=== PATIENT | male | born 1970 | race Caucasian/White ===

== ENCOUNTER 2019-12-23 21:05 | Emergency (ER) | payer BC ==
[~2019-12-23 21:05] MED LIST: Iopamidol-370 76% 500 ML 1 ML ONE
--- NOTE | 2019-12-23 21:40 | RAD ---
Exam: One view chest 2 views abdomen HISTORY: Umbilical hernia. Pain. FINDINGS: 1 view chest: Normal cardiac silhouette. Scar/atelectasis in the left lung base. No masses or consoli dation. No pneumothorax. No pleural effusion. No osseous abnormalities 2 views abdomen: Nonspecific bowel gas pattern. No evidence of bowel distention or dilatation. No pne umoperitoneum. No suspicious densities in the abdomen or pelvis. IMPRESSION: 1. No acute cardiopulmonary process. 2. Nonspecific bowel gas pattern.
[2019-12-23 21:44] LABS: #Basophils 0.1 thou/uL (0.0-0.2); #Eosinphils 0.5 thou/uL (0.0-0.7); #Lymphocytes 2.8 thou/uL (1.20-3.40); #Monocytes 0.7 thou/uL (0.11-0.59); #Neutrophils 4.2 thou/uL (1.40-6.50); %Basophils 0.9 % (0.0-1.0); %Eosinophils 6.1 % (0.0-10.0); %Lymphocytes 33.1 % (21.0-51.0); %Monocytes 8.7 % (0.0-10.0); %Neutrophils 51.1 % (42.0-75.0); Hemoglobin 18.5 g/dL (14.0-18.0); Mean Corpuscular HGB CONC 34.8 g/dL (32.0-36.0); Mean Corpuscular Hemoglobin 32.4 pg (27.0-31.0); Mean Corpuscular Volume 93.1 fL (78.0-98.0); Mean Platelet Volume 9.3 fL (7.4-10.4); Platelet Count 172 thou/uL (130-400); White Blood Cell (WBC) Count 8.3 thou/uL (4.8-10.8)
[2019-12-23] MEDS ORDERED: Morphine 4 MG/ML VIAL ONE ×2 (21:53→22:07)
[2019-12-23] MEDS ORDERED: Ketorolac Tromethamine 30 MG/ML VIAL ONE (21:54)
[2019-12-23 21:57] LABS: ALT (SGPT) 49 U/L (8-55); AST (SGOT) 24 U/L (5-34); Alkaline Phosphatase 36 U/L (40-110); Anion Gap 14 mmol/L (10-20); BUN (Urea Nitrogen) 14 mg/dL (8.9-20.6); Bilirubin, Total 0.4 mg/dL (0.2-1.2); Calc. Creatinine Clearance 0 mL/min (70-130); Calcium 9.6 mg/dL (7.8-10.44); Carbon Dioxide 23 mmol/L (22-29); Chloride 107 mmol/L (98-107); Estimated GFR-MDRD 53; Globulin 3.2 g/dL (2.4-3.5); Glucose 107 mg/dL (70-105); Lipase 117 U/L (8-78); Potassium 3.9 mmol/L (3.5-5.1); Protein, Total 7.2 g/dL (6.0-8.3); Sodium 140 mmol/L (136-145)
[2019-12-23] MEDS ORDERED: Fentanyl 100 MCG/2 ML VIAL ONE (22:23)
--- NOTE | 2019-12-23 23:49 | CT ---
EXAM: CT ABDOMEN AND PELVIS HISTORY: Chronic umbilical hernia. Abdominal pain. Past medical history of Crohn's disease and ulcera tive colitis. COMPARISON: None. Procedure: Multiple contiguous axial images were obtained and a CT of the abdomen and pelvis with IV contrast. C oronal reformats were performed. FINDINGS: Lower Chest: Linear densities in the lung bases may represent atelectasis or scar. Possibility of the left lower lobe infiltrate cannot be entirely excluded. Vessels: Normal caliber aorta. No periaortic fat stranding. Heart: Normal heart size. Abdomen: Portal vein:Patent Gallbladder: No calcified gallstones. Normal caliber wall. Liver: within normal limits. Pancreas: No enhancing masses. The pancreatic duct is slightly prominent measuring 0.3 cm. Spleen: within normal limits. Adrenals: within normal limits. Kidneys: Symmetric enhancement. No obstructive uropathy. Peritoneum: No ascites or free air, no fluid collection. Anterior abdominal wall: Anterior abdominal wall hernia containing segment of mesenteric fat. No evid ence of bowel herniation. Mild induration of the herniated fat. Bowel: Limited evaluation due to the lack of oral contrast administration. No evidence of bowel obstr uction. Ileocecal junction is unremarkable. Normal caliber appendix. Scattered fecal material in a nondistended, nondilated colon. Diverticulosis. No evidence of diverticulitis. Mesentery and Retroperitoneum: No enlarged mesenteric or retroperitoneal lymph nodes. Pelvis: Reproductive Organs: Reproductive organs are unremarkable. Pelvis: No mass, lymphadenopathy, free air or free fluid. Bladder: within normal limits. Bones: within normal limits. IMPRESSION: 1. Bibasilar atelectasis. Left lower lobe infiltrate cannot be entirely excluded. 2. Nonspecific upper normal pancreatic duct. No obvious pancreatic mass. 3. Diverticulosis, without evidence of diverticulitis. 4. Normal caliber appendix 5. Ventral abdominal wall hernia containing mesenteric fat. No bowel herniation.
== END 2019-12-24 00:27 | disposition home or self-care (01) ==
LOC: ERS 21:05
DX: K42.9 Umbilical hernia without obstruction or gangrene (principal)
CPT/HCPCS: 74022; 74177; 80053; 83690; 85025; 96361; 96374; 96375; J1885; J2270; J3010; Q9967

== ENCOUNTER → 2019-12-28 | Day surgery (SDC) | payer BC ==
[2019-12-27 16:14] VITALS: BMI 29.5
[~2019-12-28] MED LIST changes: +Acetaminophen 500 MG TAB ONE; +Bupivacaine 0.25% HCL 30 ML VIAL ONE; +EPHEDRINE 25 MG/5 ML SYRINGE ONE; +EPINEPHrine 1 MG/ML AMP ONE; +Fentanyl 100 MCG/2 ML VIAL ONE; -Iopamidol-370 76% 500 ML 1 ML ONE; +Ketorolac Tromethamine 30 MG/ML VIAL ONE; +Lidocaine 1% PF 5 ML VIAL ONE; +Meperidine HCl/PF 25 MG/ML VIAL ONE; +Ondansetron PF 4 MG/2 ML Vial ONE; +PROPOFOL 200 MG/20 ML VIAL ONE; +Rocuronium Bromide 10 MG/ML (10ML VIAL) ONE
--- NOTE | 2019-12-29 10:02 | OP ---
DATE OF PROCEDURE: 12/28/2019 PREOPERATIVE DIAGNOSIS: Painful ventral hernia. POSTOPERATIVE DIAGNOSIS: Painful ventral hernia. PROCEDURE PERFORMED: Ventral hernia repair with mesh using 4.3 cm Ventralex mesh patch. ANESTHESIA: General endotracheal. INDICATIONS: The patient is a 49-year-old white male. He presented to the emergency room for a painful incarcerated ventral hernia. It could not be reduced. CT scan demonstrated incarcerated fatty tissue within the hernia. He saw me in the office yesterday and secondary to the severity of his symptoms, I have scheduled him for his surgery for repair of his ventral hernia today. DESCRIPTION OF OPERATION: Informed consent was obtained. The patient was taken to the operating room, where general endotracheal anesthesia was obtained with the patient in supine position. The abdomen was prepped with ChloraPrep and draped in sterile fashion. Local anesthetic was infiltrated using 0.25% Marcaine with epinephrine. A curvilinear infraumbilical incision was created. Dissection was carried through skin and subcutaneous tissue down to the fascia. The umbilicus was dissected off the underlying fascia and dissection was carried up to the hernia sac. This was carefully dissected circumferentially. It was mobilized from all surrounding tissue. It was dissected at its base. The contents were entirely fatty. It would not reduce. I therefore divided all the fatty tissue and passed off the field. Meticulous hemostasis obtained with electrocautery. Preperitoneal digital dissection was carried circumferentially. Once the space was a 4.3 cm mesh patch was obtained and placed within the preperitoneal space. The tails were pulled secure against the fascia and sutured to the anterior aspect of the fascia superior and inferior to the hernia defect. The lateral aspects of the hernia were closed with interrupted sutures of 0 Prolene also. The umbilicus was then sutured back down to the fascia with 2 interrupted sutures of 3-0 Vicryl. The remainder of the wound was closed in layers with 3-0 and 4-0 Monocryl. Dermabond was placed externally. A compression dressing was then created using cotton balls and Tegaderm dressing. There were no complications. The patient tolerated the procedure well, was taken to the recovery room in stable condition. Job ID: [id number]
== END ==
LOC: SDC 09:37
PROVIDERS: ATTEND Specialist
PROC: 0WUF0JZ Supplement Abdominal Wall with Synthetic Substitute, Open Approach (ICD-10-PCS; principal; 2019-12-28)
DX: K43.9 Ventral hernia without obstruction or gangrene (principal); G61.0 Guillain-Barre syndrome
CPT/HCPCS: J0171; J0690; J1885; J2001; J2175; J2405; J2704; J3010; S0020